=== PATIENT | female | born 1945 | race Caucasian/White ===

== ENCOUNTER 2016-07-01 11:18 | Outpatient (CLI) | payer MEDICARE ==
[2016-07-01 11:56] LABS: #Basophils 0.1 thou/uL (0.0-0.2); #Eosinphils 0.2 thou/uL (0.0-0.7); #Lymphocytes 2.2 thou/uL (1.20-3.40); #Monocytes 0.5 thou/uL (0.11-0.59); #Neutrophils 4.5 thou/uL (1.40-6.50); %Basophils 1.9 % (0.0-1.0); %Eosinophils 2.9 % (0.0-10.0); %Lymphocytes 28.8 % (21.0-51.0); %Neutrophils 60.6 % (42.0-75.0); Bilirubin Negative (Negative); Blood, Urine Negative (Negative); Clarity Clear (Clear); Glucose, Urine (Dipstick) Negative (Negative); Hemoglobin 13.2 g/dL (12.0-16.0); Leukocyte Small (Negative); Mean Corpuscular HGB CONC 34.1 g/dL (32.0-36.0); Mean Corpuscular Hemoglobin 31.8 pg (27.0-31.0); Mean Corpuscular Volume 93.5 fl (81.0-99.0); Mean Platelet Volume 8.3 fL (7.4-10.4); Nitrite Negative (Negative); Platelet Count 230 thou/uL (130-400); Protein, Urine (Dipstick) Negative (Neg-Trace); Red Blood Cell (RBC) Count 4.13 mill/uL (4.20-5.40); Urobilinogen 0.2 mg/dL (0.2-1.0); White Blood Cell (WBC) Count 7.5 thou/uL (4.8-10.8)
[2016-07-01 12:03] LABS: Bacteria/HPF Rare-Few HPF (None Seen); RBC/HPF 0-3 HPF (0-3); Squamous Epithelial 0-3 HPF (0-3)
[2016-07-01 12:13] LABS: ALT (SGPT) 99 U/L (0-55); AST (SGOT) 78 U/L (5-34); Albumin 4.4 g/dL (3.4-4.8); Alkaline Phosphatase 53 U/L (40-150); Anion Gap 18 mmol/L (10-20); BUN (Urea Nitrogen) 12 mg/dL (9.8-20.1); Bilirubin, Total 0.7 mg/dL (0.2-1.2); Calc. Creatinine Clearance 0 mL/min (70-130); Calcium 9.5 mg/dL (7.8-10.44); Carbon Dioxide 25 mmol/L (23-31); Cardiac Risk 2.5 (Less than 4.5); Chloride 103 mmol/L (98-107); Cholesterol 160 mg/dL (< 200 Desired); Estimated GFR-MDRD 37; Globulin 2.8 g/dL (2.4-3.5); Glucose 91 mg/dL (80-115); HDL Cholesterol 63 mg/dL (>60 Neg Risk); LDL Cholesterol, Calculated 66 mg/dL; Potassium 3.8 mmol/L (3.5-5.1); Protein, Total 7.2 g/dL (5.8-8.1); Sodium 142 mmol/L (136-145); Triglycerides 156 mg/dL (Less than 150)
[2016-07-01 12:16] LABS: Hemoglobin A1c 5.5 % (4.0-6.0)
[2016-07-01 12:36] LABS: Thyroid Stimulating Hormone 64.2133 uIU/mL (0.35-4.94); Vitamin D, 25 Hydroxy Less than 13.0 ng/mL (> 30.0)
[2016-07-01 12:51] LABS: Free T4 (Free Thyroxine) Less than 0.40 ng/dL (0.70-1.48)
== END 2016-07-01 11:19 | disposition home or self-care (01) ==
LOC: MADLABBHPM 11:18
PROVIDERS: ATTEND Family Medicine
DX: R53.83 Other fatigue (principal)
CPT/HCPCS: 36415; 80053; 80061; 81001; 82306; 83036; 84439; 84443; 85025

== ENCOUNTER 2016-09-04 07:55 | Outpatient (CLI) | payer MEDICARE ==
[2016-09-04 09:30] LABS: ALT (SGPT) 16 U/L (0-55); AST (SGOT) 17 U/L (5-34); Albumin 3.6 g/dL (3.4-4.8); Alkaline Phosphatase 55 U/L (40-150); Anion Gap 13 mmol/L (10-20); BUN (Urea Nitrogen) 11 mg/dL (9.8-20.1); Bilirubin, Total 0.3 mg/dL (0.2-1.2); Calc. Creatinine Clearance 0 mL/min (70-130); Carbon Dioxide 23 mmol/L (23-31); Chloride 108 mmol/L (98-107); Cholesterol 105 mg/dL (< 200 Desired); Estimated GFR-MDRD 64; Globulin 2.8 g/dL (2.4-3.5); Glucose 96 mg/dL (80-115); HDL Cholesterol 35 mg/dL (>60 Neg Risk); LDL Cholesterol, Calculated 55 mg/dL; Protein, Total 6.4 g/dL (5.8-8.1); Sodium 140 mmol/L (136-145); Triglycerides 74 mg/dL (Less than 150)
[2016-09-04 09:41] LABS: Free T4 (Free Thyroxine) 1.5 ng/dL (0.70-1.48); Thyroid Stimulating Hormone 0.9472 uIU/mL (0.35-4.94)
[2016-09-04 12:08] LABS: Vitamin D, 25 Hydroxy 32.3 ng/mL (> 30.0)
== END 2016-09-04 07:56 | disposition home or self-care (01) ==
LOC: MADLABBHPM 07:55
PROVIDERS: ATTEND Internal Medicine Cardiovascular Disease
DX: E03.9 Hypothyroidism, unspecified (principal); E55.9 Vitamin D deficiency, unspecified
CPT/HCPCS: 36415; 80053; 80061; 82306; 84439; 84443

== ENCOUNTER 2016-11-27 09:44 | Outpatient (CLI) | payer MEDICARE ==
[2016-11-27 11:26] LABS: Free T4 (Free Thyroxine) 1.46 ng/dL (0.70-1.48); Thyroid Stimulating Hormone 0.5583 uIU/mL (0.35-4.94); Vitamin D, 25 Hydroxy 32.5 ng/ml (> 30.0)
== END 2016-11-27 09:45 | disposition home or self-care (01) ==
LOC: MADLABBHPM 09:44
PROVIDERS: ATTEND Family Medicine
DX: E03.9 Hypothyroidism, unspecified (principal); E55.9 Vitamin D deficiency, unspecified
CPT/HCPCS: 36415; 82306; 84439; 84443

== ENCOUNTER 2017-02-23 09:09 | Outpatient (CLI) | payer MEDICARE ==
[2017-02-23 10:30] LABS: Free T4 (Free Thyroxine) 1.27 ng/dL (0.70-1.48); Thyroid Stimulating Hormone 1.6481 uIU/mL (0.35-4.94)
== END 2017-02-23 09:10 | disposition home or self-care (01) ==
LOC: MADLABBHPM 09:09
PROVIDERS: ATTEND Family Medicine
DX: E03.9 Hypothyroidism, unspecified (principal)
CPT/HCPCS: 36415; 84439; 84443

== ENCOUNTER 2018-08-29 13:46 | Emergency (ER) | payer MEDICARE, OTHER ==
--- NOTE | 2018-08-29 14:53 | RAD ---
AP PELVIS 1 VIEW: Date: 08/29/18 HISTORY: Injury. FINDINGS: Mild degenerative changes are noted of both hip joints and SI joints. No acute fracture or dislocatio n. IMPRESSION: Degenerative changes without acute fracture or dislocation. POS: JUAN ALBERTO
--- NOTE | 2018-08-29 14:53 | RAD ---
LEFT FOOT 3 VIEWS: Date: 08/29/18 HISTORY: Left foot injury. FINDINGS/IMPRESSION: Minimal degenerative changes. No fracture or dislocation, or other significant acute process. POS: GER
== END 2018-08-29 14:50 | disposition home or self-care (01) ==
LOC: MADERS 13:46
DX: S93.602A Unspecified sprain of left foot, initial encounter (principal); S30.0XXA Contusion of lower back and pelvis, initial encounter; I10 Essential (primary) hypertension; E78.00 Pure hypercholesterolemia, unspecified; Z79.899 Other long term (current) drug therapy; W19.XXXA Unspecified fall, initial encounter
CPT/HCPCS: 72170

== ENCOUNTER 2018-09-17 11:33 | Outpatient (CLI) | payer MEDICARE, OTHER ==
--- NOTE | 2018-09-17 11:53 | RAD ---
FFrontal and lateral imaging of the left tibia/fibula: 09/17/2018 COMPARISON: 09/01/2018 HISTORY: Left lower leg pain FINDINGS: No displaced fracture or evidence of dislocation. There is enthesophyte formation at the in sertion of the Achilles tendon. Probable edema of the subcutaneous fat medially and anteriorly. IMPRESSION: No acute osseous abnormality.
== END 2018-09-17 11:34 | disposition home or self-care (01) ==
LOC: MADRAD 11:33
PROVIDERS: ATTEND Family Medicine
DX: M79.662 Pain in left lower leg (principal)

== ENCOUNTER 2021-10-26 14:48 | Emergency (ER) | payer MEDICARE, OTHER | END 2021-10-26 16:02 | disposition home or self-care (01) | LOC: MADERS 14:48 | DX: S46.812A Strain of other muscles, fascia and tendons at shoulder and upper arm level, left arm, initial encounter (principal); E78.00 Pure hypercholesterolemia, unspecified; I10 Essential (primary) hypertension; Z79.82 Long term (current) use of aspirin; Z79.890 Hormone replacement therapy; Z79.899 Other long term (current) drug therapy; X50.9XXA Other and unspecified overexertion or strenuous movements or postures, initial encounter | CPT/HCPCS: 93005 ==

== ENCOUNTER 2024-07-26 10:28 | Outpatient (CLI) | payer MEDICARE, OTHER | END 2024-07-26 10:29 | disposition home or self-care (01) | LOC: MADRAD 10:28 | PROVIDERS: ATTEND Family Medicine | DX: M17.0 Bilateral primary osteoarthritis of knee (principal) ==

== ENCOUNTER 2025-01-20 06:50 | Outpatient (CLI) | payer MEDICARE, OTHER ==
[2025-01-20 07:19] LABS: Hematocrit 46.2 % (36.0-47.0); Hemoglobin 14.3 g/dL (12.0-16.0); Mean Corpuscular Hemoglobin 28.3 pg (27.0-31.0); Mean Corpuscular Volume 91.8 fl (78.0-98.0); Platelet Count 205 10x3/uL (130-400); Red Blood Cell (RBC) Count 5.04 mill/uL (4.20-5.40); White Blood Cell (WBC) Count 6.0 10x3/uL (4.8-10.8)
[2025-01-20 07:34] LABS: MDiff Complete? YES; Manual Diff?? YES
[2025-01-20 07:35] LABS: Platelet Adequacy Comment Appears Adequate
[2025-01-20 07:52] LABS: ALT (SGPT) 19 U/L (Less than 34); AST (SGOT) 20 U/L (11-34); Albumin 3.5 g/dL (3.1-4.5); Alkaline Phosphatase 68 U/L (40-110); Anion Gap 14 mmol/L (10-20); BUN (Urea Nitrogen) 17 mg/dL (9.8-20.1); Bilirubin, Total 0.4 mg/dL (0.3-1.2); Calc. Creatinine Clearance 0 mL/min (70-130); Calcium 9.3 mg/dL (7.8-10.44); Carbon Dioxide 22 mmol/L (23-31); Cardiac Risk 3.3 (Less than 4.5); Chloride 111 mmol/L (98-107); Cholesterol 141 mg/dl (< 200 Desired); Globulin 3.1 g/dL (2.4-3.5); Glucose 98 mg/dL (83-110); HDL Cholesterol 43 mg/dL (>60 Neg Risk); LDL Cholesterol, Calculated 78 mg/dL; Potassium 4.2 mmol/L (3.5-5.1); Sodium 143 mmol/L (136-145); Triglycerides 100 mg/dL (Less than 150)
== END 2025-01-20 06:51 | disposition home or self-care (01) ==
LOC: MADLAB 06:50
PROVIDERS: ATTEND Family Medicine
DX: I12.9 Hypertensive chronic kidney disease with stage 1 through stage 4 chronic kidney disease, or unspecified chronic kidney disease (principal); E11.22 Type 2 diabetes mellitus with diabetic chronic kidney disease; N18.2 Chronic kidney disease, stage 2 (mild); E78.2 Mixed hyperlipidemia; E03.9 Hypothyroidism, unspecified; E55.9 Vitamin D deficiency, unspecified
CPT/HCPCS: 36415; 80053; 80061; 82043; 82306; 83036; 84443; 85025

== ENCOUNTER 2025-03-02 07:44 | Outpatient (CLI) | payer MEDICARE, OTHER ==
[2025-03-02 08:31] LABS: ALT (SGPT) 20 U/L (Less than 34); AST (SGOT) 19 U/L (11-34); Albumin 3.6 g/dL (3.1-4.5); Alkaline Phosphatase 65 U/L (40-110); Anion Gap 13 mmol/L (10-20); BUN (Urea Nitrogen) 14 mg/dL (9.8-20.1); Bilirubin, Total 0.4 mg/dL (0.3-1.2); Calc. Creatinine Clearance 0 mL/min (70-130); Calcium 9.1 mg/dL (7.8-10.44); Carbon Dioxide 25 mmol/L (23-31); Cardiac Risk 3.8 (Less than 4.5); Chloride 111 mmol/L (98-107); Cholesterol 147 mg/dl (< 200 Desired); Globulin 3.2 g/dL (2.4-3.5); Glucose 99 mg/dL (83-110); HDL Cholesterol 39 mg/dL (>60 Neg Risk); LDL Cholesterol, Calculated 80 mg/dL; Potassium 4.2 mmol/L (3.5-5.1); Sodium 145 mmol/L (136-145); Triglycerides 139 mg/dL (Less than 150)
== END 2025-03-02 07:45 | disposition home or self-care (01) ==
LOC: MADLAB 07:44
PROVIDERS: ATTEND Internal Medicine Cardiovascular Disease
DX: E78.00 Pure hypercholesterolemia, unspecified (principal); I10 Essential (primary) hypertension
CPT/HCPCS: 36415; 80053; 80061